=== PATIENT | male | born 1970 | race Caucasian/White ===

== ENCOUNTER 2021-07-01 21:35 | Inpatient (IN) | payer BC, SELFPAY ==
[~2021-07-01] VITALS: Ht 175.3 cm; Wt 90.7 kg
[2021-07-01 21:35] VITALS: BP_SYST 158
--- NOTE | 2021-07-01 21:51 | NUR ---
EKG done at 2145
--- NOTE | 2021-07-02 | NUR ---
Patient to ER bed Hallway to gown for evaluation. Side rails up.
--- NOTE | 2021-07-02 00:05 | NUR ---
Dr. Holman bedside for pt eval
[2021-07-02] MEDS ORDERED: KETOROLAC TROMETHAMINE 30 MG VIAL IVP ONE (00:30)
[2021-07-02] MEDS ORDERED: ASPIRIN 81 MG TAB.CHEW PO ONE (00:30)
--- NOTE | 2021-07-02 00:30 | NUR ---
PT BIB FAMILY TO ED C/O CHEST PAIN X 2 DAYS. HAS BEEN TAKING TYLENOL WITH SOME RELIEF. PT STATES HAVING JUST RECEIVED COVID BOOSTER DAY BEFORE. VSS NO S/S OF ACUTE DISTRESS
[2021-07-02 00:44] LABS: BASOPHILS % (AUTO) 0.6 % (0.0-2.0); EOSINOPHILS % (AUTO) 0.3 % (0.0-4.0); HEMATOCRIT 43.7 % (36-54); HEMOGLOBIN 15.1 g/dL (14.0-18.0); LYMPHOCYTES # (AUTO) 0.9 K/uL (1.0-5.5); LYMPHOCYTES % (AUTO) 13.3 % (20.5-51.5); MEAN CORPUSCULAR HEMOGLOBIN 29 pg (27-31); MEAN CORPUSCULAR HGB CONC 34 % (32-36); MEAN CORPUSCULAR VOLUME 85 fL (79.0-98.0); MONOCYTES # (AUTO) 0.6 K/uL (0.0-1.0); MONOCYTES % (AUTO) 8.7 % (1.7-9.3); NEUTROPHILS # (AUTO) 5.5 K/uL (1.8-7.7); NEUTROPHILS % (AUTO) 77.1 % (40.0-70.0); PLATELET COUNT (AUTO) 213 K/uL (130-430); RED BLOOD CELL COUNT(AUTO) 5.17 MIL/uL (4.2-6.2); RED CELL DISTRIBUTION WIDTH 13.5 % (9.0-15.0); WHITE BLOOD COUNT (AUTO) 7.1 K/uL (4.8-10.8)
[2021-07-02 01:04] LABS: CALCIUM 8.6 mg/dL (8.4-11.0); CREATININE 0.95 mg/dL (0.55-1.30); POTASSIUM 3.7 mmol/L (3.5-5.1)
[2021-07-02 01:10] LABS: ALBUMIN 3.7 g/dL (3.4-4.8); TOTAL BILIRUBIN 0.5 mg/dL (0.0-1.0)
[2021-07-02] MEDS ORDERED: KETOROLAC TROMETHAMINE 30 MG VIAL IM ONE (01:15)
[2021-07-02] MEDS ORDERED: NITROGLYCERIN 1 INCH (GM) OINT. TP ONE (01:30)
--- NOTE | 2021-07-02 01:42 | NUR ---
VSS no s/s of acute distress Resting on hallway ER [facility] up
[2021-07-02] MEDS ORDERED: cloNIDine HCL 0.1 MG TABLET PO PRN (01:45)
[2021-07-02] MEDS ORDERED: ENOXAPARIN SODIUM 100 MG/ML SYRINGE SUBCUT ONE (01:45)
[2021-07-02 02:16] LABS: PROTHROMBIN TIME 10.3 SECS (9.5-12.5)
--- NOTE | 2021-07-02 02:38 | NUR ---
Updated Pt's via pt's cellphone
--- NOTE | 2021-07-02 03:11 | NUR ---
VSS no s/s of acute distress Resting on gurney rails up
--- NOTE | 2021-07-02 03:36 | NUR ---
IVF + meds, effective and well tolerated
--- NOTE | 2021-07-02 04:44 | NUR ---
Pt verbalized feeling a little bit better
--- NOTE | 2021-07-02 05:48 | NUR ---
Pt ambulated without assitance to and from men's room, voided clear yellow urine, well tolerated
--- NOTE | 2021-07-02 06:20 | NUR ---
Pt remains in stable condition, resting in comfort on gurney with rails up
--- NOTE | 2021-07-02 07:30 | NUR ---
pt. sleeping in bed
--- NOTE | 2021-07-02 07:38 | NUR ---
Pt. awake denies any pain, med. rec. and pt. belongings done
[2021-07-02] MEDS ORDERED: ASPIRIN 81 MG TAB.CHEW ONE (07:42)
[2021-07-02] MEDS: ASPIRIN 81 MG TAB.CHEW PO SCH (07:43)
--- NOTE | 2021-07-02 09:35 | NUR ---
Patient to ER bed 4.
--- NOTE | 2021-07-02 09:37 | NUR ---
DR FLEMING HERE TO EVALUATE PT.
[2021-07-02] MEDS: ENOXAPARIN SODIUM 80 MG/0.8 ML SYRINGE SUBCUT SCH ×2 (09:45→21:00)
[2021-07-02] MEDS ORDERED: MORPHINE 2 MG/ML INJ. SYRINGE IVP PRN (10:00)
[2021-07-02] MEDS ORDERED: ACETAMINOPHEN 325 MG TABLET PO PRN (10:00)
--- NOTE | 2021-07-02 11:19 | NUR ---
PT HAS REMAINED STABLE, EKG SR , AND REMAINS A TELEMETRY HOLD UNTIL BED IS AVAILABLE.
--- NOTE | 2021-07-02 15:14 | NUR ---
PT REMAINS STABLE, NO S/S OF HEART PAINS. PT IS IN HOSPITAL BED AND AWAITING TELEMETRY BED.
--- NOTE | 2021-07-02 18:00 | NUR ---
PT CONTINUES TO REMAIN STABLE, ALERT ORIENTED. HE IS ADMITTED TO TELEMETRY FLOOR, BUT ER HOLD. MD ON HIS CASE HAVE SPOKEN TO HIM AND IS SCHEDULED FOR A PROCEDURE TOMORROW AT [facility].
--- NOTE | 2021-07-02 19:12 | NUR ---
REPORT TO BUSINESS DEVELOPMENT SALES EXECUTIVE NURSE.
--- NOTE | 2021-07-02 19:29 | NUR ---
ORDER TO TRANSFER TO [facility] AT [address]. NPO AFTER BREAKFAST. ANGIOGRAM WITH POSSIBLE STENT PLACEMENT.
--- NOTE | 2021-07-02 19:55 | NUR ---
Pt verbalized understanding on Dr. Gastelum's order for transfer to [facility] in am (1000) , [facility] coordinator called to state that she is looking for bed on pt's behalf , and will be ready in am
[2021-07-02] MEDS: METOPROLOL TARTRATE 25 MG TABLET PO SCH (21:00)
--- NOTE | 2021-07-02 21:44 | NUR ---
Pt verbalized feeling ok, self walking to and from mens room well tolerated
--- NOTE | 2021-07-02 22:45 | NUR ---
No s/s of acute distress, VSS
--- NOTE | 2021-07-03 | NUR ---
Pt verbalized understanding that we are trying to arrange ALS transport to [facility] early AM for Heart Cath and Hospital adm around 8 - 10 am
--- NOTE | 2021-07-03 01:06 | NUR ---
No update from [facility] nor ALS med trans
--- NOTE | 2021-07-03 03:21 | NUR ---
Pt states " feeling a bit better " in addition to ambulating to and from restroom, well tolerated
--- NOTE | 2021-07-03 04:44 | NUR ---
tire setter as well as Dr. Holman has communicated with pt regarding the challenges of getting ALS transport
--- NOTE | 2021-07-03 05:32 | NUR ---
VSS no CP, nor other s/s of acute distress Resting on hospital bed rails up
--- NOTE | 2021-07-03 06:44 | NUR ---
Dr. Miller bedside to update pt on latest information regarding transfer to [facility] / Audience Coordinator
--- NOTE | 2021-07-03 07:07 | NUR ---
REPORT RECEIVED FROM KATHERYN WARD FOR CONTINUING CARE
[2021-07-03 07:44] LABS: BASOPHILS % (AUTO) 0.4 % (0.0-2.0); EOSINOPHILS # (AUTO) 0.1 K/uL (0.0-0.4); EOSINOPHILS % (AUTO) 1.7 % (0.0-4.0); HEMATOCRIT 43.4 % (36-54); LYMPHOCYTES % (AUTO) 34.2 % (20.5-51.5); MEAN CORPUSCULAR HEMOGLOBIN 29 pg (27-31); MEAN CORPUSCULAR HGB CONC 35 % (32-36); MEAN CORPUSCULAR VOLUME 85 fL (79.0-98.0); MONOCYTES # (AUTO) 0.7 K/uL (0.0-1.0); MONOCYTES % (AUTO) 12.3 % (1.7-9.3); NEUTROPHILS % (AUTO) 51.4 % (40.0-70.0); PLATELET COUNT (AUTO) 198 K/uL (130-430); RED CELL DISTRIBUTION WIDTH 13.7 % (9.0-15.0); WHITE BLOOD COUNT (AUTO) 5.9 K/uL (4.8-10.8)
--- NOTE | 2021-07-03 08:00 | NUR ---
PT RESTING IN SIS, AAOX, NO DISTRESS
[2021-07-03 08:04] LABS: ALBUMIN 3.7 g/dL (3.4-4.8); CALCIUM 8.8 mg/dL (8.4-11.0); CREATININE 0.79 mg/dL (0.55-1.30); POTASSIUM 3.9 mmol/L (3.5-5.1); THYROID STIMULATING HORMONE 4.32 uIu/mL (0.36-3.74); TOTAL BILIRUBIN 0.8 mg/dL (0.0-1.0)
--- NOTE | 2021-07-03 08:17 | NUR ---
DR FULTON HERE TO EVALUATE PT
--- NOTE | 2021-07-03 08:38 | NUR ---
LAURE VASQUEZ AT [facility] WHO STATES THEY DO NOT CURRENTLY HAVE A BED AVAILABLE AT THIS TIME.
--- NOTE | 2021-07-03 08:41 | NUR ---
PER DR. FULTON PT TO BE SENT DIRECTLY TO [facility], CALL BEING PLACED TO [facility]
--- NOTE | 2021-07-03 08:45 | NUR ---
PER ROBER BABIN AT [facility], SHE WILL CALL BACK WITH UPDATE ON BED AVAIABLITY FOR TRANSFER
[2021-07-03] MEDS ORDERED: ATORVASTATIN 20 MG TABLET PO SCH (09:00)
--- NOTE | 2021-07-03 09:12 | NUR ---
CALL FROM ROBER BABIN SUP AT 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
[2021-07-03] MEDS: ASPIRIN 81 MG TAB.CHEW PO SCH (09:33)
[2021-07-03] MEDS: METOPROLOL TARTRATE 25 MG TABLET PO SCH (09:34)
[2021-07-03] MEDS: ENOXAPARIN SODIUM 80 MG/0.8 ML SYRINGE SUBCUT SCH (09:35)
--- NOTE | 2021-07-03 10:30 | NUR ---
CALL TO LUPE ETIENNE AT [facility] Addendum: 07/03/21 at 1032 by [email or web address] REPORT GIVEN TO KATHERYN WARD FOR CONTINUING CARE, NO ANSWER
--- NOTE | 2021-07-03 10:39 | NUR ---
Patient to be transferred to [facility]. Is being transferred due to higher level of care. Receiving facility has accepting physician and available space. ER physician has signed transfer form. Patient or responsible constitution party has agreed to transfer and signed form. Patient belongings inventoried and will be sent with patient. Copy of nursing notes, lab reports, EKG, Physicians Orders and X-rays to be sent with patient. Report called to GLOVE EXAMINER at receiving facility. Receiving physician is DR. FULTON. [facility] has been called for transfer.
[2021-07-03 10:40] VITALS: BP_SYST 129
== END 2021-07-03 11:00 | disposition short-term general hospital (02) | DRG 282 ==
LOC: SED 21:35 → STU 07-02 01:44
PROVIDERS: ADMIT Internal Medicine; ATTEND Internal Medicine
DX: I21.4 Non-ST elevation (NSTEMI) myocardial infarction (principal); E78.5 Hyperlipidemia, unspecified; E66.9 Obesity, unspecified; I20.0 Unstable angina; Z20.822 Contact with and (suspected) exposure to COVID-19; Z83.3 Family history of diabetes mellitus; Z68.29 Body mass index [BMI] 29.0-29.9, adult
CPT/HCPCS: 36415; 71045; 80053; 80061; 82550; 83735; 83880; 84443; 84484; 85025; 85379; 85610-TC; 85730-TC; 93005; 93306; G0378; J1650